=== PATIENT | female | born 1980 | race Two or more races ===

== ENCOUNTER 2019-01-19 06:38 | Day surgery (SDC) | payer OTHER ==
[~2019-01-19 06:38] MED LIST: ZANTAC300 MG PO
== END 2019-01-19 19:20 | disposition home or self-care (01) ==
LOC: CIR.AMB 06:38
DX: D24.1 Benign neoplasm of right breast (principal); D24.2 Benign neoplasm of left breast

== ENCOUNTER 2021-02-05 09:55 | Outpatient (CLI) | payer OTHER | END 2021-02-05 10:00 | disposition home or self-care (01) | LOC: SONOGRAMA 09:55 | PROVIDERS: ATTEND Pathology Anatomic Pathology & Clinical Pathology | DX: E04.1 Nontoxic single thyroid nodule (principal) ==